=== PATIENT | male | born 1950 | race Two or more races ===

== ENCOUNTER 2024-06-22 10:13 | Emergency (ER) | payer OTHER ==
[2024-06-22] MEDS ORDERED: BACITRACIN 0.9 GM PACKET ONE ×2 (12:04→12:16)
[2024-06-22] MEDS: BACITRACIN ZINC 15 GM TUBE TOPICAL OINTMENT TP ONE (12:24)
[2024-06-22 13:04] VITALS: BP 123/75; PULSE 68; RESP 17; TEMP 98.6; BMI 39.1
== END 2024-06-22 14:51 | disposition home or self-care (01) ==
LOC: JER 10:13
DX: S00.81XA Abrasion of other part of head, initial encounter (principal); S80.211A Abrasion, right knee, initial encounter; S80.212A Abrasion, left knee, initial encounter; W00.9XXA Unspecified fall due to ice and snow, initial encounter
CPT/HCPCS: 70450-TC; 72125-TC; 99284-25